=== PATIENT | female | born 1975 ===

== ENCOUNTER 2023-07-30 05:03 | Observation (INO) ==
[2023-07-30] MEDS ORDERED: IOPAMIDOL 100 ML BOTTLE IV ONE (05:04)
[2023-07-30] MEDS ORDERED: KETOROLAC 15 MG/ML VIAL IV ONE (05:21)
[2023-07-30] MEDS ORDERED: 0.9 % SODIUM CHLORIDE 1,000 ML IV ONE (05:21)
[2023-07-30] MEDS ORDERED: morphine 4 MG/ML VIAL IV ONE (05:48)
[2023-07-30 06:01] LABS: Hematocrit 40.5 % (34.1-44.9); Hemoglobin 13.6 g/dL (11.2-15.7); Mean Cell Volume 92.7 fL (80.0-100.0); Mean Corpuscular HGB Conc 33.6 g/dL (31.0-36.0); Mean Platelet Volume 11.1 fL (8.8-12.5); Platelet Count 299 K/mcL (140-440); RBC 4.37 M/mcL (3.59-5.38); Red Cell Distribution Width 12.5 % (11.5-14.5); WBC 8.1 K/mcL (4.5-11.0)
[2023-07-30 06:23] LABS: ALT/SGPT 10 U/L (<40); AST/SGOT 12 U/L (<32); Albumin 4.4 gm/dL (3.2-5.2); Albumin/Globulin Ratio 1.8 (1.0-2.3); Alkaline Phosphatase 77 U/L (39-117); Bilirubin,Total 0.2 mg/dL (0.1-1.0); Blood Urea Nitrogen 12 mg/dL (6-20); Calcium 9.5 mg/dL (8.6-10.4); Carbon Dioxide 24 mmol/L (22-30); Chloride 101 mmol/L (96-108); Globulin 2.5 gm/dL (2.2-3.7); Glomerular Filtration Rate 86; Glucose 96 mg/dL (70-105)
[2023-07-30] MEDS ORDERED: fentaNYL 100 MCG/2 ML VIAL IV ONE ×2 (06:54→13:38)
[2023-07-30 07:15] LABS: Appearance,Urine HAZY (Clear); Bacteria,Urine FEW /hpf (0); Bilirubin,Urine Negative (Negative); Color,Urine YELLOW; Culture Indicated,Urine Yes; Glucose,Urine (UA) Negative (Negative); Ketones,Urine Negative (Negative); Leukocyte Esterase,Urine Negative /uL (Negative); Mucus,Urine FEW /hpf; Nitrate,Urine Negative (Negative); Protein,Urine Negative (Negative); Specific Gravity,Urine 1.017 (1.000-1.035); Urine Blood Negative (Negative); Urine RBC 3 /hpf (0-3); Urine Squamous Epithelial Cell 8 /hpf (0-4); Urine Transitional Epi Cells < 1 /hpf (0-2); Urine WBC < 1 /hpf (0-4); Urobilinogen,Urine Negative
[2023-07-30 08:07] LABS: Band Neutrophils % 1 % (0-10); Basophils % (Manual) 1 % (0-2); Eosinophils % (Manual) 2 % (0-7); Lymphocytes % 21 % (15-49); Monocytes % (Manual) 4 % (1-12); Platelet Estimate NORMAL (Normal); RBC Morphology NORMAL (Normal); Reactive Lymphocytes 2 % (0-2); Segmented Neutrophils % 69 % (38-78)
[2023-07-30] MEDS ORDERED: PIPERACILLIN SODIUM/TAZOBACTAM 3.375 GM in DEXTROSE 5% IN WATER 50 ML IV ONE (08:24)
[2023-07-30] MEDS ORDERED: PIPERACILLIN SODIUM/TAZOBACTAM 3.375 GM in DEXTROSE 5% IN WATER 100 ML IV SCH (09:15)
[2023-07-30] MEDS ORDERED: fentaNYL 100 MCG/2 ML VIAL IV PRN (09:16)
[2023-07-30] MEDS ORDERED: morphine 2 MG/ML VIAL IV ONE (13:02)
[2023-07-30] MEDS ORDERED: ONDANSETRON 4 MG/2 ML VIAL ONE (13:38)
[2023-07-30] MEDS ORDERED: DEXAMETHASONE 10 MG/ML VIAL ONE (13:38)
[2023-07-30] MEDS ORDERED: PROPOFOL 200 MG/20 ML VIAL IV ONE (13:38)
[2023-07-30] MEDS ORDERED: ROCURONIUM 10 MG/ML ML IV ONE (13:38)
[2023-07-30] MEDS ORDERED: PROMETHAZINE 25 MG/ML VIAL IV PRN ×2 (13:47→15:00)
[2023-07-30] MEDS: PIPERACILLIN SODIUM/TAZOBACTAM 3.375 GM in DEXTROSE 5% IN WATER 100 ML IV SCH ×2 (13:58→20:49)
[2023-07-30] MEDS ORDERED: SCOPOLAMINE 1 PATCH PATCH TOPICAL ONE (14:14)
[2023-07-30] MEDS ORDERED: HYDROmorphone 1 MG/ML SYRINGE ONE (14:57)
[2023-07-30] MEDS ORDERED: SUGAMMADEX SODIUM 200 MG/2 ML VIAL IV ONE (14:58)
[2023-07-30] MEDS ORDERED: IPRATROPIUM/ALBUTEROL 3 ML AMPUL.NEB NEB PRN (15:00)
[2023-07-30] MEDS ORDERED: ePHEDrine 50 MG/ML AMPUL IV PRN (15:00)
[2023-07-30] MEDS ORDERED: NALOXONE HCL 0.4 MG/ML VIAL IV PRN (15:00)
[2023-07-30] MEDS ORDERED: ONDANSETRON 4 MG/2 ML VIAL IV PRN (15:00)
[2023-07-30] MEDS: fentaNYL 100 MCG/2 ML VIAL IV PRN ×3 (15:38→15:54)
[2023-07-30] MEDS ORDERED: KETOROLAC 30 MG/ML VIAL ONE (15:40)
[2023-07-30] MEDS: 0.9 % SODIUM CHLORIDE 1,000 ML IV SCH ×3 (17:08→23:29)
[2023-07-30] MEDS: PANTOPRAZOLE 40 MG VIAL IV SCH (17:09)
[2023-07-30] MEDS ORDERED: morphine 4 MG/ML VIAL ONE (18:35)
[2023-07-30] MEDS: morphine 4 MG/ML VIAL IV PRN ×3 (18:40→23:29)
[2023-07-30] MEDS ORDERED: SUMAtriptan SUCCINATE 50 MG TABLET PO PRN (18:55)
[2023-07-30] MEDS: 0.9 % SODIUM CHLORIDE 10 ML SYRINGE IV SCH (20:58)
[2023-07-31] MEDS: ACETAMINOPHEN 1,000 MG/100 ML BAG IV PRN ×3 (00:35→14:05)
[2023-07-31] MEDS: 0.9 % SODIUM CHLORIDE 1,000 ML IV SCH ×3 (03:27→09:50)
[2023-07-31] MEDS: PIPERACILLIN SODIUM/TAZOBACTAM 3.375 GM in DEXTROSE 5% IN WATER 100 ML IV SCH ×2 (04:56→14:05)
[2023-07-31] MEDS: 0.9 % SODIUM CHLORIDE 10 ML SYRINGE IV SCH ×2 (05:04→14:21)
[2023-07-31 07:18] LABS: Basophils # (Auto) 0.01 K/mcL (0.00-0.30); Basophils % (Auto) 0.1 % (0.0-2.0); Eosinophils # (Auto) 0 K/mcL (0.00-0.70); Eosinophils % (Auto) 0 % (0.0-7.0); Hematocrit 35.6 % (34.1-44.9); Hemoglobin 11.4 g/dL (11.2-15.7); Lymphocytes # (Auto) 0.72 K/mcL (1.50-4.80); Lymphocytes % (Auto) 8.3 % (15.5-49.0); Mean Cell Volume 96.2 fL (80.0-100.0); Mean Platelet Volume 11.4 fL (8.8-12.5); Monocytes # (Auto) 0.42 K/mcL (0.10-0.90); Monocytes % (Auto) 4.9 % (1.0-12.0); Neutrophils % (Auto) 86.2 % (38.0-78.0); Platelet Count 243 K/mcL (140-440); Red Cell Distribution Width 12.8 % (11.5-14.5); WBC 8.7 K/mcL (4.5-11.0)
[2023-07-31] MEDS: PANTOPRAZOLE 40 MG VIAL IV SCH ×2 (07:37→15:43)
[2023-07-31 07:38] LABS: ALT/SGPT 24 U/L (<40); AST/SGOT 31 U/L (<32); Albumin 3.6 gm/dL (3.2-5.2); Albumin/Globulin Ratio 1.6 (1.0-2.3); Alkaline Phosphatase 55 U/L (39-117); Bilirubin,Direct < 0.2 mg/dL (0-0.3); Bilirubin,Total 0.4 mg/dL (0.1-1.0); Blood Urea Nitrogen 7 mg/dL (6-20); Calcium 7.9 mg/dL (8.6-10.4); Carbon Dioxide 24 mmol/L (22-30); Chloride 105 mmol/L (96-108); Globulin 2.2 gm/dL (2.2-3.7); Glomerular Filtration Rate 86; Glucose 110 mg/dL (70-105); Lactate Dehydrogenase 153 U/L (135-225); Phosphorous 3.1 mg/dL (2.5-4.5); Triglycerides 78 mg/dL (<150); Uric Acid 3.5 mg/dL (2.5-8.0)
[2023-07-31] MEDS ORDERED: VENLAFAXINE 37.5 MG TAB.ER.24H PO SCH (09:00)
[2023-07-31] MEDS: morphine 4 MG/ML VIAL IV PRN ×2 (10:45→15:43)
== END 2023-07-31 16:20 | disposition home or self-care (01) ==
LOC: MEDSUR 05:03 → ED 05:03 → MEDSUR 13:30
PROVIDERS: ADMIT Family Medicine Adult Medicine; ATTEND Family Medicine Adult Medicine